=== PATIENT | male | born 1980 | race Caucasian/White ===

== ENCOUNTER → 2016-06-15 | Outpatient (CLI) | payer BC ==
--- NOTE | 2016-06-16 14:01 | CR ---
EXAM DATE: 06/15/16 PATIENT'S AGE: 35 Patient: MICHAELLE CEBALLOS Facility: [place], [place] Site Site : 1980 Study: XRay Chest [id number]/25/2017 2:53:56 PM Ordering Physician: Rosalia Bernstein Final Report: INDICATION: Shortness of breath. TECHNIQUE: Chest 2 views. COMPARISON: None. FINDINGS: Cardiovascular and mediastinum: Heart size and vasculature are normal in caliber and appearance. Mediastinum is within normal limits. Lungs and pleural spaces: Lungs are clear. No sign of infiltrate or mass. No sign of pleural effusion. No pneumothorax. Bones and soft tissues: No significant findings. IMPRESSION: Unremarkable chest. Dictated by: Lazaro Rosales MD @ 06/16/2016 11:00:59 (Electronic Signature) Report Signed by Proxy and Original Signed Document filed in the Medical Record. MTDD
--- NOTE | 2016-06-17 14:06 | CR ---
EXAM DATE: 06/15/16 PATIENT'S AGE: 35 Patient: MICHAELLE CEBALLOS Facility: [place], [place] Site Site : 1980 Study: XRay Spine Lumbar [id number]/25/2017 2:53:11 PM Ordering Physician: Rosalia Bernstein Final Report: HISTORY: Lower back pain. Findings: AP, lateral and coned lateral views lumbar spine demonstrate 5 lumbar vertebral bodies. Disc spaces and vertebral body heights are maintained. No spondylolisthesis is seen. No pars defects identified. Impression: No bony abnormality within the lumbar spine. Dictated by Grace Mota MD @ Jun 16 2016 10:09PM (Electronic Signature) Report Signed by Proxy. DIXON
== END | disposition home or self-care (01) ==
LOC: MW.CHFP 14:13
PROVIDERS: ATTEND Family Medicine
DX: R06.02 Shortness of breath (principal); M54.5 Low back pain
CPT/HCPCS: 71020; 71020-26; 72100; 72100-26